=== PATIENT | female | born 1955 | race Caucasian/White ===

== ENCOUNTER 2019-08-14 09:51 | Inpatient (IN) ==
[2019-08-14] MEDS ORDERED: ATROPINE 1 MG/10 ML SYRINGE IV PRN (10:16)
[2019-08-14] MEDS ORDERED: ATROPINE 1 MG/10 ML SYRINGE ONE (10:17)
[2019-08-14 10:34] LABS: Basophils # 0.1 10*3/uL (0.0-0.2); Basophils % 0.5 % (0.0-0.8); Eosinophils # 0.1 10*3/uL (0.0-0.87); Hematocrit 49.3 VOL% (35.7-47.0); Hemoglobin 16.4 GM/DL (12.0-16.0); Immature Granulocytes % 0.8 %; Immature Granulocytes Absolute 0.09 #; Lymphocytes # 2.4 10*3/uL (1.4-4.0); Mean Corpuscular HGB Conc 33.3 GM/DL (32-36); Mean Corpuscular Volume 95.5 FL (87-102); Mean Platelet Volume 12.2 FL (9.6-12.0); Monocytes % 7.4 % (1.7-12.7); Neutrophils % 69.3 % (38.7-73.9); Platelet Count 145 T/CUMM (130-400); Red Blood Count 5.16 MC/CUMM (3.8-5.5); Red Cell Distribution Width 13.5 % (9.3-17.3); White Blood Count 11.5 T/CUMM (4-12)
[2019-08-14 11:08] LABS: Albumin 3.3 G/DL (3.4-5.0); Bilirubin,Total 0.5 MG/DL (0.2-1.0); Calcium 8.5 MG/DL (8.5-10.1); Osmolality,Calculated 285.1 MOS/KG (273-304); Thyroid Stimulating Hormone 2.67 uIU/ml (0.358-3.74); Total Protein 6.4 G/DL (6.4-8.3)
[2019-08-14] MEDS ORDERED: POTASSIUM CHLORIDE 20 MEQ TABLET PO PRN (11:24)
[2019-08-14] MEDS ORDERED: PROMETHAZINE 25 MG TABLET PO PRN (11:24)
[2019-08-14] MEDS ORDERED: guaiFENesin/DM ER 600-30 MG TABLET PO PRN (11:24)
[2019-08-14] MEDS ORDERED: MAGNESIUM SULF RIDER 2 GM in PREMIX 1 EACH IV PRN (11:24)
[2019-08-14] MEDS ORDERED: MAGNESIUM SULF RIDER 4 GM in PREMIX 1 EACH IV PRN (11:24)
[2019-08-14] MEDS ORDERED: BISACODYL 5 MG TABLET PO PRN (11:24)
[2019-08-14] MEDS ORDERED: ZALEPLON 5 MG CAPSULE PO PRN (11:24)
[2019-08-14] MEDS ORDERED: diphenhydrAMINE CAP 25 MG CAPSULE PO PRN (11:24)
[2019-08-14] MEDS ORDERED: SODIUM CHLORIDE 0.9% 1,000 ML IV SCH (11:30)
[2019-08-14] MEDS ORDERED: FUROSEMIDE 40 MG/4 ML VIAL IV STA (11:34)
[2019-08-14] MEDS ORDERED: POTASSIUM CHLORIDE RIDER 10 MEQ in PREMIX 1 EACH IV PRN (11:44)
[2019-08-14] MEDS ORDERED: diphenhydrAMINE CAP 25 MG CAPSULE PO ONE (11:44)
[2019-08-14] MEDS ORDERED: ASPIRIN 325 MG TABLET PO ONE (11:44)
[2019-08-14] MEDS ORDERED: DIAZEPAM 5 MG TABLET PO ONE (11:44)
[2019-08-14 11:46] LABS: Apearance,Urine CLEAR (Clear); Bilirubin,Urine Negative (Negative); Blood, Urine Small mg/dL (Negative); Glucose,Urine (UA) Negative (Negative); Ketones,Urine Negative (Negative); Mucus,Urine Occasional /LPF (Occasional); Nitrite,Urine Negative (Negative); Protein,Urine 30 MG/DL; RBC,Urine 7 /HPF (0-4); Squamous Epithelial Cell,Urine Occasional /HPF (0-10); Urine Color Yellow (Yellow); Urine Specific Gravity 1.021 (1.001-1.035); WBC,Urine <1 /HPF (0-6)
[2019-08-14 11:53] LABS: Risk Ratio 3.23; VLDL CHOLESTEROL 39.2 MG/DL
[2019-08-14] MEDS ORDERED: LIDOCAINE 1% 20 ML VIAL ONE ×2 (12:00→12:40)
[2019-08-14 12:07] LABS: Barbiturates Screen,Urine Negative (Negative); Benzodiazepines Screen,Urine Negative (Negative); Cannabinoid Screen,Urine Positive (Negative); Opiate Screen,Urine Negative (Negative); Phencyclidine Screen,Urine Negative (Negative)
[2019-08-14] MEDS ORDERED: MIDAZOLAM 2 MG/2 ML VIAL ONE (12:16)
[2019-08-14] MEDS ORDERED: fentaNYL 100 MCG/2 ML VIAL ONE (12:16)
[2019-08-14] MEDS ORDERED: HEPARIN 5,000 UNIT/1 ML VIAL ONE (12:43)
[2019-08-14] MEDS ORDERED: NIFEdipine 10 MG CAPSULE PO ONE (13:02)
[2019-08-14] MEDS: LOSARTAN 25 MG TABLET PO SCH (15:23)
[2019-08-14] MEDS: hydrALAZINE 20 MG/1 ML VIAL IV PRN (18:16)
[2019-08-14] MEDS: DOCUSATE SODIUM 100 MG CAPSULE PO SCH (20:32)
[2019-08-14] MEDS: GABAPENTIN 300 MG CAPSULE PO SCH (20:33)
[2019-08-14] MEDS: ROSUVASTATIN 10 MG TABLET PO SCH (20:39)
[2019-08-15] MEDS: hydrALAZINE 20 MG/1 ML VIAL IV PRN (00:15)
[2019-08-15 05:54] LABS: Basophils # 0.1 10*3/uL (0.0-0.2); Basophils % 0.4 % (0.0-0.8); Eosinophils # 0.1 10*3/uL (0.0-0.87); Eosinophils % 0.5 % (0.00-10.9); Hematocrit 47.6 VOL% (35.7-47.0); Hemoglobin 15.6 GM/DL (12.0-16.0); Immature Granulocytes Absolute 0.13 #; Lymphocytes # 1.9 10*3/uL (1.4-4.0); Mean Corpuscular HGB Conc 32.8 GM/DL (32-36); Mean Corpuscular Volume 96.4 FL (87-102); Mean Platelet Volume 12.7 FL (9.6-12.0); Neutrophils % 77.1 % (38.7-73.9); Platelet Count 147 T/CUMM (130-400); Red Blood Count 4.94 MC/CUMM (3.8-5.5); Red Cell Distribution Width 13.7 % (9.3-17.3); White Blood Count 13.3 T/CUMM (4-12)
[2019-08-15 06:09] LABS: Calcium 8.9 MG/DL (8.5-10.1); Osmolality,Calculated 280.3 MOS/KG (273-304)
[2019-08-15] MEDS: LEVOTHYROXINE 125 MCG TABLET PO SCH (06:09)
[2019-08-15] MEDS: ASPIRIN EC 81 MG TABLET PO SCH (08:54)
[2019-08-15] MEDS: PANTOPRAZOLE 40 MG TABLET PO SCH (08:54)
[2019-08-15] MEDS: LOSARTAN 25 MG TABLET PO SCH (08:54)
[2019-08-15] MEDS: ONDANSETRON 4 MG/2 ML VIAL IV PRN (09:20)
[2019-08-15] MEDS ORDERED: ENOXAPARIN 40 MG/0.4 ML SYRINGE SUBCUT ONE (12:10)
[2019-08-15] MEDS: DOCUSATE SODIUM 100 MG CAPSULE PO SCH (20:26)
[2019-08-15] MEDS: GABAPENTIN 300 MG CAPSULE PO SCH (20:26)
[2019-08-15] MEDS: ROSUVASTATIN 10 MG TABLET PO SCH ×2 (20:26→20:50)
[2019-08-16] MEDS: hydrALAZINE 20 MG/1 ML VIAL IV PRN ×2 (06:10→22:10)
[2019-08-16] MEDS: LEVOTHYROXINE 125 MCG TABLET PO SCH (06:12)
[2019-08-16] MEDS: ONDANSETRON 4 MG/2 ML VIAL IV PRN (07:15)
[2019-08-16] MEDS: ENOXAPARIN 40 MG/0.4 ML SYRINGE SUBCUT SCH (09:06)
[2019-08-16] MEDS: ASPIRIN EC 81 MG TABLET PO SCH (09:06)
[2019-08-16] MEDS: PANTOPRAZOLE 40 MG TABLET PO SCH (09:06)
[2019-08-16] MEDS: LOSARTAN 25 MG TABLET PO SCH (09:06)
[2019-08-16] MEDS ORDERED: ceFAZolin 1,000 MG in SYRINGE 1 EACH IV ONE (09:16)
[2019-08-16] MEDS ORDERED: ceFAZolin 1,000 MG VIAL IRRIG ONE (09:16)
[2019-08-16] MEDS: GABAPENTIN 300 MG CAPSULE PO SCH (20:02)
[2019-08-16] MEDS: DOCUSATE SODIUM 100 MG CAPSULE PO SCH (20:02)
[2019-08-16] MEDS: ROSUVASTATIN 10 MG TABLET PO SCH (20:03)
[2019-08-17 04:24] LABS: Basophils # 0.1 10*3/uL (0.0-0.2); Basophils % 0.5 % (0.0-0.8); Eosinophils # 0.1 10*3/uL (0.0-0.87); Hematocrit 50.7 VOL% (35.7-47.0); Immature Granulocytes % 0.9 %; Lymphocytes # 2.5 10*3/uL (1.4-4.0); Lymphocytes % 22.6 % (21.3-54.2); Mean Corpuscular HGB Conc 31.6 GM/DL (32-36); Mean Corpuscular Volume 98.1 FL (87-102); Mean Platelet Volume 12.1 FL (9.6-12.0); Monocytes % 8.7 % (1.7-12.7); Neutrophils % 66.3 % (38.7-73.9); Platelet Count 144 T/CUMM (130-400); Red Blood Count 5.17 MC/CUMM (3.8-5.5); Red Cell Distribution Width 13.7 % (9.3-17.3); White Blood Count 11.2 T/CUMM (4-12)
[2019-08-17 04:48] LABS: Calcium 8.8 MG/DL (8.5-10.1); Osmolality,Calculated 281.3 MOS/KG (273-304)
[2019-08-17] MEDS: ONDANSETRON 4 MG/2 ML VIAL IV PRN ×5 (05:20→21:33)
[2019-08-17] MEDS ORDERED: ceFAZolin 1,000 MG in SYRINGE 1 EACH IV ONE (06:00)
[2019-08-17] MEDS ORDERED: ceFAZolin 1,000 MG VIAL IRRIG ONE (06:00)
[2019-08-17] MEDS: LEVOTHYROXINE 125 MCG TABLET PO SCH (06:22)
[2019-08-17] MEDS: LOSARTAN 25 MG TABLET PO SCH ×2 (08:15→08:29)
[2019-08-17] MEDS: PANTOPRAZOLE 40 MG TABLET PO SCH (08:16)
[2019-08-17] MEDS: ASPIRIN EC 81 MG TABLET PO SCH (08:16)
[2019-08-17] MEDS: ENOXAPARIN 40 MG/0.4 ML SYRINGE SUBCUT SCH (08:16)
[2019-08-17] MEDS: hydrALAZINE 20 MG/1 ML VIAL IV PRN ×2 (09:19→14:26)
[2019-08-17] MEDS ORDERED: HEPARIN/NACL 0.9% 2 UNITS/ML 500 ML IV ONE (11:49)
[2019-08-17] MEDS ORDERED: LIDOCAINE 1% 20 ML VIAL ONE (11:49)
[2019-08-17] MEDS ORDERED: ceFAZolin 1,000 MG VIAL ONE (11:49)
[2019-08-17] MEDS ORDERED: TISSUE ADHESIVE 1 EACH APPLICATOR TOP ONE (11:49)
[2019-08-17] MEDS ORDERED: fentaNYL 100 MCG/2 ML VIAL ONE (12:00)
[2019-08-17] MEDS ORDERED: MIDAZOLAM 2 MG/2 ML VIAL ONE (12:00)
[2019-08-17] MEDS ORDERED: diphenhydrAMINE 50 MG/1 ML VIAL ONE (13:03)
[2019-08-17] MEDS ORDERED: oxyCODONE/ACETAMINOPHEN 5-325 MG TABLET PO PRN (13:52)
[2019-08-17] MEDS ORDERED: ACETAMINOPHEN 325 MG TABLET PO PRN (13:52)
[2019-08-17] MEDS ORDERED: fentaNYL 100 MCG/2 ML VIAL IV PRN (14:53)
[2019-08-17] MEDS ORDERED: PROMETHAZINE INJ 25 MG in SODIUM CHLORIDE 0.9% 50 ML IV PRN (15:23)
[2019-08-17] MEDS: METOPROLOL TARTRATE 5 MG/5 ML VIAL IV SCH ×2 (15:39→21:34)
[2019-08-17] MEDS: ceFAZolin 1,000 MG in SYRINGE 1 EACH IV SCH (21:33)
[2019-08-17] MEDS: GABAPENTIN 300 MG CAPSULE PO SCH (21:41)
[2019-08-17] MEDS: ROSUVASTATIN 10 MG TABLET PO SCH (21:41)
[2019-08-17] MEDS: DOCUSATE SODIUM 100 MG CAPSULE PO SCH (21:41)
[2019-08-17] MEDS: SODIUM CHLORIDE 0.9% 1,000 ML IV SCH (22:00)
[2019-08-18] MEDS: METOPROLOL TARTRATE 5 MG/5 ML VIAL IV SCH ×6 (01:00→22:17)
[2019-08-18] MEDS: ceFAZolin 1,000 MG in SYRINGE 1 EACH IV SCH (03:49)
[2019-08-18 05:02] LABS: Basophils # 0.1 10*3/uL (0.0-0.2); Basophils % 0.5 % (0.0-0.8); Eosinophils # 0.1 10*3/uL (0.0-0.87); Eosinophils % 0.8 % (0.00-10.9); Hematocrit 49.9 VOL% (35.7-47.0); Hemoglobin 16.1 GM/DL (12.0-16.0); Immature Granulocytes % 1.5 %; Immature Granulocytes Absolute 0.19 #; Lymphocytes # 2.9 10*3/uL (1.4-4.0); Lymphocytes % 23.1 % (21.3-54.2); Mean Corpuscular HGB Conc 32.3 GM/DL (32-36); Mean Corpuscular Volume 97.5 FL (87-102); Mean Platelet Volume 12.1 FL (9.6-12.0); Monocytes % 9.5 % (1.7-12.7); Neutrophils % 64.6 % (38.7-73.9); Platelet Count 164 T/CUMM (130-400); Red Blood Count 5.12 MC/CUMM (3.8-5.5); Red Cell Distribution Width 13.4 % (9.3-17.3); White Blood Count 12.6 T/CUMM (4-12)
[2019-08-18 05:34] LABS: Calcium 8.9 MG/DL (8.5-10.1); Osmolality,Calculated 276.5 MOS/KG (273-304)
[2019-08-18] MEDS: LEVOTHYROXINE 125 MCG TABLET PO SCH (05:53)
[2019-08-18] MEDS ORDERED: KETOROLAC 15 MG/1 ML VIAL IV PRN (10:07)
[2019-08-18] MEDS ORDERED: PIPERACILLIN/TAZOBACTAM 4,500 MG in SODIUM CHLORIDE 0.9% 100 ML IV SCH (10:30)
[2019-08-18] MEDS: SODIUM CHLORIDE 0.9% 1,000 ML IV SCH ×2 (10:54→23:50)
[2019-08-18] MEDS: PIPERACILLIN/TAZOBACTAM 3,375 MG in SODIUM CHLORIDE 0.9% 100 ML IV SCH ×2 (10:55→17:30)
[2019-08-18] MEDS: LOSARTAN 25 MG TABLET PO SCH (12:40)
[2019-08-18] MEDS: ASPIRIN EC 81 MG TABLET PO SCH (12:40)
[2019-08-18] MEDS: amLODIPine 5 MG TABLET PO SCH (12:40)
[2019-08-18] MEDS: PANTOPRAZOLE 40 MG TABLET PO SCH (12:40)
[2019-08-18] MEDS: ENOXAPARIN 40 MG/0.4 ML SYRINGE SUBCUT SCH (12:41)
[2019-08-18] MEDS: GABAPENTIN 300 MG CAPSULE PO SCH (22:16)
[2019-08-18] MEDS: DOCUSATE SODIUM 100 MG CAPSULE PO SCH (22:16)
[2019-08-18] MEDS: ROSUVASTATIN 10 MG TABLET PO SCH (22:17)
[2019-08-19] MEDS: PIPERACILLIN/TAZOBACTAM 3,375 MG in SODIUM CHLORIDE 0.9% 100 ML IV SCH ×2 (03:45→10:06)
[2019-08-19] MEDS: LEVOTHYROXINE 125 MCG TABLET PO SCH (05:48)
[2019-08-19] MEDS: METOPROLOL TARTRATE 5 MG/5 ML VIAL IV SCH ×5 (05:48→12:05)
[2019-08-19] MEDS ORDERED: DOXYCYCLINE HYCLATE 100 MG CAPSULE PO SCH (09:00)
[2019-08-19] MEDS: PANTOPRAZOLE 40 MG TABLET PO SCH (09:21)
[2019-08-19] MEDS: LOSARTAN 25 MG TABLET PO SCH (09:21)
[2019-08-19] MEDS: ASPIRIN EC 81 MG TABLET PO SCH (09:21)
[2019-08-19] MEDS: amLODIPine 5 MG TABLET PO SCH (09:21)
[2019-08-19] MEDS: ENOXAPARIN 40 MG/0.4 ML SYRINGE SUBCUT SCH (09:21)
[2019-08-19] MEDS: SODIUM CHLORIDE 0.9% 1,000 ML IV SCH (09:25)
[2019-08-19] MEDS ORDERED: amLODIPine 10 MG TABLET PO SCH (14:18)
[2019-08-19 15:59] VITALS: BP 186/82
[2019-08-20] MEDS ORDERED: LOSARTAN 50 MG TABLET PO SCH (09:00)
== END 2019-08-19 16:34 | disposition home or self-care (01) | DRG 242 ==
LOC: N.ED 09:51 → N.EDINP 11:24 → N.ICU 12:00 → N.TELEN 08-17 23:22
PROVIDERS: ADMIT Internal Medicine Cardiovascular Disease; ATTEND Internal Medicine Cardiovascular Disease
PROC: CLCCHCL (ICD-10-PCS; 2019-08-14 12:15)